=== PATIENT | male | born 1990 | race Caucasian/White ===

== ENCOUNTER 2019-08-15 06:58 | Emergency (ER) | payer OTHER, SELFPAY ==
[2019-08-15 07:08] VITALS: BP 135/99; PULSE 107; RESP 17; TEMP 37.8; O2SAT 97; BMI 28.1
--- NOTE | 2019-08-15 07:19 | ED_ITS ---
HPI - Fever General Chief Complaint: Upper Respiratory Symptoms Stated Complaint: having 100 degree temp, sore throat, lump in throa Time Seen by Provider: 08/15/19 07:08 Source: patient Limitations: no limitations History of Present Illness HPI Narrative: Patient is a 28-year-old male who presents with sore throat ongoing for the last 4 days. He has had sweats and chills as well. Able to drink fluids. He says he has been taking DayQuil which only helps temporarily. He denies any cough. He feels like his glands are swollen around his neck. complaint: fever Onset (ago): day(s) (4) Maximum Temperature: 101 F Related Data Previous Rx's Medication Instructions Recorded amoxicillin 500 mg PO BID #14 cap 08/15/19 Allergies Allergy/AdvReac Type Severity Reaction Status Date / Time No Known Drug Allergies Allergy Verified 08/15/19 07:08 Review of Systems Review of Systems Narrative: GENERAL: Denies chills, fatigue, malaise, fever, sweats, travel HEENT: See HPI RESPIRATORY: Denies dyspnea, cough, wheezing, hemoptysis, sputum. CARDIOVASCULAR: Denies chest pain, palpitations, orthopnea, edema GASTROINTESTINAL: Denies nausea, vomiting, abdominal pain, diarrhea, constipation, melena. : Denies dysuria, frequency, incontinence, hematuria, urinary retention, flank pain. MUSCULOSKELETAL: Denies weakness, joint pain, or bony pain SKIN: No rash, no erythema, no pruritus NEUROLOGIC: Denies weakness, dizziness, headache, numbness, change in speech, confusion PSYCHIATRIC: No concerning psychosocial issues. 12 point review of systems is negative except for those stated above and HPI Patient History Medical History Patient denies significant medical history (Acute) Social History Smoking Status: Never smoker alcohol intake frequency: holidays/special occasions only Substance Use Type: does not use Exam Initial Vital Signs Initial Vital Signs: Vital Signs Temperature 100.0 F H 08/15/19 07:08 Pulse Rate 107 H 08/15/19 07:08 Respiratory Rate 17 08/15/19 07:08 Blood Pressure 135/99 H 08/15/19 07:08 Pulse Oximetry 97 08/15/19 07:08 GENERAL: Well-appearing, well-nourished and in no acute distress. HEENT: Head atraumatic,EOMI, pupils reactive, face symmetric, moist mucous membranes PHARYNX: Erythematous enlarged tonsils with exudate no uvula swelling or deviation managing own secretions airway patent CARDIOVASCULAR: Regular rate and rhythm without murmurs, rubs or gallops. RESPIRATORY: Breath sounds equal bilaterally, no wheezes rales or rhonchi. ABDOMEN: Soft, nontender. Normoactive bowel sounds all 4 quadrants. No guarding or rebound. EXTREMITIES: Normal range of motion, no clubbing or edema. Neurovascularly intact NEUROLOGICAL: Alert and oriented x4.Normal gait and speech. Cranial nerves II th rough XII grossly intact. SKIN: Warm, dry, no laceration, no petechiae, no rashes or lesions. Course Vital Signs Vital signs: Vital Signs - 8 hr 08/15/19 07:08 Temperature 100.0 F H Pulse Rate 107 H Respiratory Rate 17 Blood Pressure 135/99 H Pulse Oximetry 97 MDM - Fever Lab Data Labs: Point of Care Testing Rapid Strep A Negative Discharge Plan Departure Patient Disposition: Home Clinical Impression: Pharyngitis Qualifiers: Pharyngitis/tonsillitis etiology: unspecified etiology Qualified Code(s): J02.9 - Acute pharyngitis, unspecified Discharge Date/Time: 08/15/19 07:36 Instructions: DI for Strep Throat Activity Restrictions/Additional Instructions: *You have been diagnosed with strep pharyngitis *What to do: Increase fluid intake, water, Gatorade, Jell-O, popsicles, applesauce etc *Continue to take medications as directed Ibuprofen 800 mg every 8 hours as needed for pain or fever Tylenol 1000 mg every 6 hours if needed for fever to not exceed more than 4000 mg in 24 hours *Follow up with your primary care provider in 2-3 days *Return to ER if you should have inability to swallow, increasing pain, fever not controlled or any new, worsening or concerning symptoms Prescriptions: New amoxicillin 500 mg capsule 500 mg PO BID Qty: 14 RF: 0 Referrals: Batsheva Alonzo MD [Primary Care Provider] - Stand Alone Forms: Work Release Note
== END 2019-08-15 07:36 | disposition home or self-care (01) ==
PROVIDERS: Emergency Provider Emergency Medicine; PCP Preventive Medicine Aerospace Medicine
DX: J02.9 Acute pharyngitis, unspecified (principal); R50.9 Fever, unspecified
CPT/HCPCS: 87880; 99282; 99283